=== PATIENT | male | born 1980 | race Hispanic/Latino ===

== ENCOUNTER 2017-02-04 00:45 | Emergency (ER) | payer OTHER ==
[2017-02-04 00:54] VITALS: RESP 20
[2017-02-04 01:38] LABS: BASO % 0.7 % (0.0-2.0); EOS # 0.2 K/uL (0.0-0.7); EOS % 4.7 % (0.0-4.0); LYMPH # 1.6 K/uL (1.0-4.3); LYMPH % 30.4 % (20.0-40.0); MEAN CELL VOLUME 85.7 fL (80.0-94.0); MEAN CORPUSCULAR HEMOGLOBIN 28.7 pg (27.0-31.0); MEAN CORPUSCULAR HGB CONC 33.5 g/dL (33.0-37.0); MEAN PLATELET VOLUME 8.2 fL (7.2-11.7); MONO # 0.4 K/uL (0.0-0.8); MONO % 7.3 % (0.0-10.0); NRBC % 0.1 % (0.0-2.0); RED CELL DISTRIBUTION WIDTH 13.4 % (11.5-14.5); WHITE BLOOD COUNT 5.3 K/uL (4.8-10.8)
--- NOTE | 2017-02-04 01:41 | C.PDOC ---
History Of Present Illness 36 year old brought in by EMS was found sleeping in a hotel hallway today. Pt appears intoxicated with abrasions to the forehead and nose. Pt denies any complaints stating "I feel fine". Pt admits to having consumed ETOH. Chief Complaint (Nursing): Substance Abuse History Per: Patient History/Exam Limitations: no limitations Onset/Duration Of Symptoms: Hrs Current Symptoms Are (Timing): Still Present Modifying Factor(s): Alcohol Severity: Mild Past Medical History Reviewed: Historical Data, Nursing Documentation, Vital Signs Vital Signs: Last Vital Signs Temp 98.5 F 02/04/17 06:17 Pulse 69 02/04/17 06:17 Resp 20 02/04/17 06:17 BP 148/68 02/04/17 06:17 Pulse Ox 95 02/04/17 06:36 Family History: States: Unknown Family Hx - Social History Hx Alcohol Use: Yes Hx Substance Use: No - Immunization History Hx Tetanus Toxoid Vaccination: No Hx Influenza Vaccination: No Hx Pneumococcal Vaccination: No Review Of Systems Except As Marked, All Systems Reviewed And Found Negative. Constitutional: Positive for: Other (ETOH intoxicated) ENT: Positive for: Other (Abrasion on forehead and nose.) Psych: Positive for: Other (ETOH abuse) Physical Exam - Physical Exam Appears: Well, Other (+AOB) Skin: Warm, Dry Head: No Atraumatic (Abrasion to the mid forehead, nose, and nasal area.), No Other (No deformity, hematoma) Eye(s): bilateral: Normal Inspection, PERRL, EOMI Oral Mucosa: Moist Cardiovascular: Rhythm Regular Respiratory: Normal Breath Sounds, No Wheezing Gastrointestinal/Abdominal: Normal Exam, Soft, No Tenderness Extremity: Normal ROM, No Tenderness Neurological/Psych: No Normal Speech (Slurred speech) Gait: Unable To Assess ED Course And Treatment - Laboratory Results Result Diagrams: 02/04/17 01:33 02/04/17 01:33 O2 Sat by Pulse Oximetry: 95 Pulse Ox Interpretation: Normal - CT Scan/US CT Head w/o IV contrast Other Rad Studies (CT/US): Interpreted By Me, Read By Radiologist CT/US Interpretation: EXAM: CT Head Without Intravenous Contrast. CLINICAL HISTORY: 36 years old, male; Pain; Headache; Additional info: Head trauma, alcohol abuse. TECHNIQUE: Axial computed tomography images of the head/brain without intravenous contrast. This CT exam. was performed using one or more of the following dose reduction techniques: automated exposure. control, adjustment of the mA and/or kV according to patient size, and/or use of iterative. reconstruction technique. EXAM DATE/TIME: 02/04/2017 1:23 AM. COMPARISON: No relevant prior studies available. FINDINGS: Brain: Unremarkable. No hemorrhage. No significant white matter disease. No edema. Ventricles: Unremarkable. No ventriculomegaly. Bones/joints: Unremarkable. No acute fracture. Soft tissues: Unremarkable. Sinuses: Fluid in the ethmoid and sphenoid sinus. Mastoid air cells: Unremarkable as visualized. No mastoid effusion. IMPRESSION: No acute findings. Sinus inflammation Progress Note: Pt lab work appears normal. 0600- Pt is awake , AOx 3 ambulatory to restroom with steasy gait. Pt will follow up in clinic. Reassessment Condition: Improved Disposition Counseled Patient/Family Regarding: Diagnosis, Need For Followup - Disposition Referrals: [facility] [Outside] Disposition: HOME/ ROUTINE Disposition Time: 06:34 Condition: STABLE Additional Instructions: Please follow up with PMD Return to ER if worse Instructions: Abuse of Alcohol (ED) - Clinical Impression Clinical Impression: Alcohol intoxication, Facial abrasion - Scribe Statement The provider has reviewed the documentation as recorded by the Scribgermán [email or web address] All medical record entries made by the Harryibgermán were at my direction and personally dictated by me. I have reviewed the chart and agree that the record accurately reflects my personal performance of the history, physical exam, medical decision making, and the department course for this patient. I have also personally directed, reviewed, and agree with the discharge instructions and disposition.
[2017-02-04 01:56] LABS: CHLORIDE 99 mmol/L (98-107)
[2017-02-04 01:57] LABS: POTASSIUM 3.7 mmol/L (3.6-5.2); SODIUM 144 mmol/L (132-148)
[2017-02-04 01:59] LABS: ALB/GLOB RATIO 1.3 (1.0-2.1); ALKALINE PHOSPHATASE 71 U/L (38-126); AST/SGOT 41 U/L (17-59); BILIRUBIN,TOTAL 0.2 mg/dL (0.2-1.3); BLOOD UREA NITROGEN 14 mg/dL (9-20); CARBON DIOXIDE 28 mmol/L (22-30); GFR AFRICAN-AMERICAN > 60; TOTAL PROTEIN 7.6 g/dL (6.3-8.3)
[2017-02-04 02:00] LABS: ALCOHOL SERUM 262 mg/dl (0-10); ALT/SGPT 29 U/L (21-72); CALCIUM 8.3 mg/dl (8.6-10.4); GLUCOSE,RANDOM 91 mg/dL (75-110)
[2017-02-04 06:18] VITALS: BP 148/68; PULSE 69; TEMP 98.5
[2017-02-04 06:36] VITALS: O2SAT 95
--- NOTE | 2017-02-04 07:50 | CT ---
PROCEDURE: CT HEAD WITHOUT CONTRAST. HISTORY: head trauma, alcohol abuse COMPARISON: None available. TECHNIQUE: Axial computed tomography images were obtained through the head/brain without intravenous contrast. Radiation dose: Total exam DLP = 880 mGy-cm. FINDINGS: HEMORRHAGE: No intracranial hemorrhage. BRAIN: No mass effect or edema. No atrophy or chronic microvascular ischemic changes. VENTRICLES: Unremarkable. No hydrocephalus. CALVARIUM: Unremarkable. PARANASAL SINUSES: Fluid and mucosal thickening in the ethmoid sinus and sphenoid sinus. MASTOID AIR CELLS: Unremarkable as visualized. No inflammatory changes. OTHER FINDINGS: None. IMPRESSION: No acute intracranial abnormality. Sinus mucosal disease. These findings were preliminarily reported at 2:45 a.m. on 02/04/[address] Chepe Gilliland from [facility].
== END 2017-02-04 06:40 | disposition home or self-care (01) ==
LOC: C.ER 00:45
DX: F10.120 Alcohol abuse with intoxication, uncomplicated (principal); Y90.8 Blood alcohol level of 240 mg/100 ml or more; S00.81XA Abrasion of other part of head, initial encounter; X58.XXXA Exposure to other specified factors, initial encounter; Y92.9 Unspecified place or not applicable

== ENCOUNTER 2017-02-06 00:28 | Emergency (ER) | payer OTHER ==
[2017-02-06 00:34] VITALS: TEMP 98.1; O2SAT 98
--- NOTE | 2017-02-06 01:35 | C.PDOC ---
History Of Present Illness Patient is brought to the emergency room by EMS for heroine abuse. Patient admits to using 3-4 bags of heroine today and also notes that he uses it daily. Patient reports that he went to [facility], which is where he became unresponsive. EMS arrived and the patient became responsive. Patient also admits to drinking ETOH. Patient is not interested in detox and denies any physical complaints at this time. Time Seen by Provider: 02/06/17 00:59 Chief Complaint (Nursing): Substance Abuse History Per: Patient, EMS History/Exam Limitations: no limitations Onset/Duration Of Symptoms: Hrs Current Symptoms Are (Timing): Still Present Suicide/Self Injury Attempted (Context): None Modifying Factor(s): Other (Heroine) Severity: Mild Associated Symptoms: denies: Suicidal Thoughts, Suicidal Plan Recent travel outside of the [place]: No Past Medical History Reviewed: Historical Data, Nursing Documentation, Vital Signs Vital Signs: Last Vital Signs Temp 98.1 F 02/06/17 00:34 Pulse 98 H 02/06/17 01:46 Resp 15 02/06/17 01:46 BP 123/69 02/06/17 01:46 Pulse Ox 98 02/06/17 01:47 Family History: States: Unknown Family Hx - Social History Hx Alcohol Use: Yes Hx Substance Use: Yes (HEROIN, IV) - Immunization History Hx Tetanus Toxoid Vaccination: No Hx Influenza Vaccination: No Hx Pneumococcal Vaccination: No Review Of Systems Constitutional: Positive for: Other (Heroine use (3-4 bags)). Negative for: Fever Gastrointestinal: Negative for: Nausea, Vomiting, Diarrhea Physical Exam - Physical Exam Appears: Non-toxic Skin: Normal Color, Warm, Dry Head: Atraumatic, Normacephalic Cardiovascular: Rhythm Regular Respiratory: Normal Breath Sounds, No Rales, No Rhonchi, No Wheezing Extremity: Normal ROM, No Tenderness Neurological/Psych: Oriented x3 ED Course And Treatment O2 Sat by Pulse Oximetry: 98 Medical Decision Making Medical Decision Making: Pt observed in the ED He declined detox Pt alert, steady gait stable for dc Disposition Counseled Patient/Family Regarding: Diagnosis, Need For Followup - Disposition Disposition: HOME/ ROUTINE Disposition Time: 01:33 Condition: FAIR Instructions: Narcotic Abuse (ED) - Clinical Impression Clinical Impression: Accidental overdose of heroin - Scribe Statement The provider has reviewed the documentation as recorded by the Scribe Juan José Ren All medical record entries made by the Tommy were at my direction and personally dictated by me. I have reviewed the chart and agree that the record accurately reflects my personal performance of the history, physical exam, medical decision making, and the department course for this patient. I have also personally directed, reviewed, and agree with the discharge instructions and disposition.
[2017-02-06 02:49] VITALS: BP 123/69; PULSE 98; RESP 15
== END 2017-02-06 01:47 | disposition home or self-care (01) ==
LOC: C.ER 00:28
DX: T40.1X1A Poisoning by heroin, accidental (unintentional), initial encounter (principal); Y92.89 Other specified places as the place of occurrence of the external cause

== ENCOUNTER 2017-02-24 21:14 | Emergency (ER) | payer OTHER ==
--- NOTE | 2017-02-25 00:56 | C.PDOC ---
History Of Present Illness <Cliff Powers - Last Filed: 02/25/17 00:53> <Emiliana Balderas - Last Filed: 02/25/17 05:13> 36 y/o M c history of heroin abuse presents to ER stating that he took heroin today and felt drowsy and unable to move earlier today. He states that a few weeks ago, he did the same thing and lost consciousness but today he was able to stay conscious. He states that it has mostly worn off, and he feels normal now but wishes to stop using drugs so he came to ER for detox. Denies fever, chest pain, vomiting. (Cliff Powers) <Cliff Powers - Last Filed: 02/25/17 00:53> <Emiliana Balderas - Last Filed: 02/25/17 05:13> Time Seen by Provider: 02/24/17 21:59 Chief Complaint (Nursing): Substance Abuse Past Medical History - Medical History PMH: Anxiety, Back Problems, Depression Family History: States: Unknown Family Hx - Social History Hx Alcohol Use: Yes Hx Substance Use: Yes (HEROIN, IV) - Immunization History Hx Tetanus Toxoid Vaccination: No Hx Influenza Vaccination: No Hx Pneumococcal Vaccination: No <Cliff Powers - Last Filed: 02/25/17 00:53> Reviewed: Historical Data, Nursing Documentation, Vital Signs Family History: States: No Known Family Hx <Emiliana Balderas - Last Filed: 02/25/17 05:13> Vital Signs: Last Vital Signs Temp 97.8 F 02/25/17 04:59 Pulse 71 02/25/17 04:59 Resp 16 02/25/17 04:59 BP 110/71 02/25/17 04:59 Pulse Ox 97 02/25/17 04:59 Review Of Systems Except As Marked, All Systems Reviewed And Found Negative. Constitutional: Negative for: Fever Cardiovascular: Negative for: Chest Pain <Cliff Powers - Last Filed: 02/25/17 00:53> Physical Exam - Physical Exam Appears: No Acute Distress Skin: Normal Color Head: Atraumatic, Normacephalic Oral Mucosa: Moist Neck: Supple Cardiovascular: Rhythm Regular Respiratory: Normal Breath Sounds Gastrointestinal/Abdominal: Soft, No Tenderness Extremity: No Tenderness, No Swelling Pulses: Left Radial: Normal, Right Radial: Normal Neurological/Psych: Normal Speech, Normal Cognition <Cliff Powers - Last Filed: 02/25/17 00:53> ED Course And Treatment O2 Sat by Pulse Oximetry: 98 <Cliff Powers - Last Filed: 02/25/17 00:53> O2 Sat by Pulse Oximetry: 97 Pulse Ox Interpretation: Normal Reevaluation Time: 05:13 Reassessment Condition: Improved <Emiliana Balderas - Last Filed: 02/25/17 05:13> Medical Decision Making <Cliff Powers - Last Filed: 02/25/17 00:53> <Emiliana Balderas - Last Filed: 02/25/17 05:13> Medical Decision Making: No detox beds available but will provide with list of centers where he can find help. Otherwise, will allow to rest in ER overnight due to his intoxication today. (Cliff Powers) Disposition - Disposition Disposition Time: 00:00 <Cliff Powers - Last Filed: 02/25/17 00:53> Counseled Patient/Family Regarding: Studies Performed, Diagnosis - Disposition Disposition Time: 01:00 <Emiliana Balderas - Last Filed: 02/25/17 05:13> - Disposition Disposition: HOME/ ROUTINE Condition: FAIR Instructions: Polysubstance Abuse (ED) - Clinical Impression Clinical Impression: Drug abuse
[2017-02-25 05:01] VITALS: O2SAT 97
[2017-02-25 06:34] VITALS: BP 115/67; PULSE 64; RESP 20; TEMP 98.1
== END 2017-02-25 06:41 | disposition home or self-care (01) ==
LOC: C.ER 21:14
DX: F19.10 Other psychoactive substance abuse, uncomplicated (principal)